=== PATIENT | female | born 1990 | race Two or more races ===

== ENCOUNTER 2022-11-07 12:12 | Emergency (ER) | payer OTHER ==
[~2022-11-07] VITALS: Ht 160 cm; Wt 73.5 kg
[2022-11-07] MEDS ORDERED: DEXAMETHAS0.5 MG/5 M PO (13:59)
[2022-11-07] MEDS ORDERED: TUSSI PRES-B L480 ML (13:59)
[2022-11-07] MEDS ORDERED: TUSSIN DM SYRU118 ML PO (16:12)
[2022-11-07] MEDS ORDERED: ZITHROMAX500 MG PO (16:12)
== END 2022-11-07 16:16 | disposition home or self-care (01) ==
LOC: ER 12:12
DX: J06.9 Acute upper respiratory infection, unspecified (principal); Z20.822 Contact with and (suspected) exposure to COVID-19